=== PATIENT | male | born 1965 | race Caucasian/White ===

== ENCOUNTER 2018-02-28 18:14 | Emergency (ER) | payer BC ==
[2018-02-28] MEDS ORDERED: Morphine VIAL* 10 MG/ML 1 ML VIAL IV ONE (18:31)
[2018-02-28] MEDS ORDERED: Ondansetron INJ* 2 MG/ML VIAL IV ONE (18:31)
[2018-02-28] MEDS ORDERED: Morphine VIAL* 10 MG/ML 1 ML VIAL ONE (18:35)
[2018-02-28] MEDS ORDERED: NS 0.9% 1000 ML*IV.FLUID IV ONE (19:05)
[2018-02-28] MEDS ORDERED: fentaNYL* 50 MCG/ML 2 ML VIAL (100 MCG VIAL) IV SLOW PU ONE ×3 (19:14→19:27)
[2018-02-28] MEDS ORDERED: fentaNYL* 50 MCG/ML 2 ML VIAL (100 MCG VIAL) ONE (19:16)
[2018-02-28] MEDS ORDERED: Midazolam* 1 MG/ML 5 ML VIAL (5 MG) ONE (19:17)
[2018-02-28] MEDS ORDERED: Midazolam* 1 MG/ML 5 ML VIAL (5 MG) SLOW PUSH ONE (19:21)
[2018-02-28] MEDS ORDERED: Midazolam* 1 MG/ML 5 ML VIAL (5 MG) IV ONE (19:29)
--- NOTE | 2018-02-28 20:20 | ED ---
Upper Extremity Pain - HPI Summary HPI Summary: Complains of likely left shoulder dislocation. History of same 1 week ago that was reduced. Patient states he was sleeping today and raised his arm up over his head and felt left shoulder pop out again. Denies any other pain or injury. - History of Current Complaint Chief Complaint: EDShoulderClavicleInj Stated Complaint: LT SHOULDER INJURY Time Seen by Provider: 02/28/18 18:42 Hx Obtained From: Patient Mechanism Of Injury: Other Onset/Duration: Started Hours Ago Timing: Constant Severity Initially: Severe Severity Currently: Severe Pain Location: Shoulder Character: Sharp Aggravating Factor(s): Movement Alleviating Factor(s): Nothing Associated Signs & Symptoms: Positive: Negative - Allergies/Home Medications Allergies/Adverse Reactions: Allergies Allergy/AdvReac Type Severity Reaction Status Date / Time No Known Allergies Allergy Verified 02/28/18 18:41 PMH/Surg Hx/FS Hx/Imm Hx Endocrine/Hematology History: Denies: Hx Anticoagulant Therapy History: Denies: Hx Dialysis Neurological History: Denies: Hx CVA Infectious Disease History: No Infectious Disease History: Reports: Traveled Outside the [place] in Last 30 Days - [place] - Social History Alcohol Use: Daily Alcohol Amount: 2 glasses wine Substance Use Type: Reports: None Hx Tobacco Use: No Smoking Status (MU): Current Some Day Smoker Review of Systems Constitutional: Negative Eyes: Negative ENT: Negative Cardiovascular: Negative Respiratory: Negative Gastrointestinal: Negative Genitourinary: Negative Positive: Arthralgia Skin: Negative Neurological: Negative Psychological: Normal All Other Systems Reviewed And Are Negative: Yes Physical Exam - Summary Physical Exam Summary: Obvious deformity to left shoulder. Patient will not move left upper extremity. PMS intact distally Triage Information Reviewed: Yes Vital Signs On Initial Exam: Initial Vitals Temp Pulse Resp BP Pulse Ox 98 F 77 20 183/133 97 02/28/18 18:18 02/28/18 18:18 02/28/18 18:18 02/28/18 18:18 02/28/18 18:18 Vital Signs Reviewed: Yes Appearance: Positive: Well-Appearing Skin: Positive: Warm Head/Face: Positive: Normal Head/Face Inspection Eyes: Positive: Normal Neck: Positive: Supple Respiratory/Lung Sounds: Positive: Clear to Auscultation Cardiovascular: Positive: Normal Abdomen Description: Positive: Nontender Musculoskeletal: Positive: Normal Neurological: Positive: Normal Psychiatric: Positive: Normal AVPU Assessment: Alert - Comfrey Coma Scale Best Eye Response: 4 - Spontaneous Best Motor Response: 6 - Obeys Commands Best Verbal Response: 5 - Oriented Coma Scale Total: 15 Diagnostics - Vital Signs Vital Signs Temp Pulse Resp BP Pulse Ox 02/28/18 19:30 16 02/28/18 19:22 15 02/28/18 19:14 82 209/131 99 02/28/18 19:12 79 99 02/28/18 18:49 77 100 02/28/18 18:37 16 02/28/18 18:18 98 F 77 20 183/133 97 - Laboratory Lab Statement: Any lab studies that have been ordered have been reviewed, and results considered in the medical decision making process. - Radiology shoulder Xray Interpretation: Positive (See Comments) - anterior dislocation shoulder postreduc Xray Interpretation: No Acute Changes - Successful reduction Radiology Interpretation Completed By: ED Physician - Dr. Stafford orthopedics Course/Dx - Course Course Of Treatment: Complains of likely left shoulder dislocation. History of same 1 week ago that was reduced. Patient states he was sleeping today and raised his arm up over his head and felt left shoulder pop out again. Denies any other pain or injury. Physical exam:Obvious deformity to left shoulder. Patient will not move left upper extremity. PMS intact distally. Anterior Dislocation of left shoulder per X-ray. Reduction of left shoulder performed by Dr Stafford orthopedics on-call, under conscious sedation. Confirmed by x-ray. Follow-up with Dr. Bethea in clinic. Rx for oxycodone. Sling placed. - Diagnoses Provider Diagnoses: Recurrent dislocation, left shoulder Discharge - Sign-Out/Discharge Documenting (check all that apply): Patient Departure - Discharge Plan Condition: Stable Disposition: HOME Prescriptions: Oxycodone HCl 5 mg PO Q6HR 2 Days #6 tablet MDD 4 tabs Patient Education Materials: Shoulder Dislocation Exercises (GEN), Shoulder Dislocation (ED) Referrals: Cyndie Ahumada MD [Primary Care Provider] - Vik Church MD [Medical Doctor] - Jasmyn Bethea MD [Medical Doctor] - Additional Instructions: Follow-up with orthopedics Dr. Stafford and Dr Bethea. Return to the ED for any new or worsening symptoms - Billing Disposition and Condition Condition: STABLE Disposition: Home
--- NOTE | 2018-02-28 21:00 | CONSULT ---
Consult Consult: Orthopedic Surgery Consultation Date: 02/28/2018 Requesting Service:ER Chief Complaint: Left shoulder pain History: 52M with a left shoulder dislocation standing up from couch. Had 2 prior dislocations, 26 years ago, and last week on vacation (reduced by his ). The pain is located at the left shoulder and is constant, severe, sharp. Pain worse with shoulder ROM and lessened when rested. Review of Systems: Negative for fever, recent visual changes, difficulty swallowing, chest pain, shortness of breath, abdominal pain, hematuria, easy bruising, diffuse weakness or lack of coordination, and diffuse rash. Physical Examination: Constitutional: Temp Pulse Resp BP Pulse Ox 98 F 82 16 209/131 99 02/28/18 18:18 02/28/18 19:14 02/28/18 19:30 02/28/18 19:14 02/28/18 19:14 General appearance is healthy and non-septic in no acute distress. Cardiovascular: Pulse examination demonstrates positive radial pulses with brisk capillary refill. There are no varicosities. Abdomen: Soft and nontender Lymphatic: No lymphadenopathy appreciated. Skin: Bilateral upper and lower extremity examination demonstrates no ulcerative lesions. Psychiatric / Neurological: Appropriate affect. Alert and oriented to person, place and time. There is no significant abnormality in coordination appreciated. Normoreflexive deep tendon reflex of the affected extremity. Musculoskeletal: Bilateral lower extremities and contralateral upper extremity show full range of motion with no evidence of instability and no tenderness with palpation and 5 /5 strength. There is no gross deformity. Obvious deformity of left shoulder. TTP at shoulder Pain with any ROM shoulder Has limited elbow extension at baseline but otherwise painless ROM +radial pulse +EPL, OP, 1st SRIKANTH Decreased sensation in the hand. Imaging: X-rays were obtained, and independently interpreted and show an anteroinferior GH joint dislocation Impression and Plan: Recurrent left shoulder GH joint dislocation. I obtained written consent for a closed reduction of the left GH joint. Conscious sedation provided by the ER and I pulled traction/countertraction on the LUE to reduce the GH joint. He tolerated it well and was placed in a sling and swath afterwards. Postreduction xrays showed a reduction of the GH joint. + radial pulse and improved sensation in the hand. He will follow-up with my colleague Dr. Bethea to discuss further care/surgery. He will remain in sling and swath, NWB. Vik Church MD
[2018-02-28 21:20] VITALS: BP 139/84
--- NOTE | 2018-03-01 08:01 | RAD ---
HISTORY: shoulder pain COMPARISONS: None VIEWS: 2 , frontal and outlet views of the left shoulder FINDINGS: BONE DENSITY: Normal. BONES: There is flattening of the articular surface of the humeral head posteriorly suggestive of a Hill-Sachs lesion. JOINTS: There is no arthropathy. ALIGNMENT: There is anterior-inferior dislocation of the humerus with respect to the glenoid fossa. SOFT TISSUES: Unremarkable. OTHER FINDINGS: None. IMPRESSION: LEFT SHOULDER DISLOCATION WITH PROBABLE HILL-SACHS FRACTURE. R1
--- NOTE | 2018-03-01 08:04 | RAD ---
Indication: Post reduction left shoulder dislocation 2 views of left shoulder demonstrates reduction of prior identified anterior dislocation. A fracture of the anterior inferior glenoid cannot be excluded. There is likely a Hill-Sachs deformity. IMPRESSION: Option of previously identified anterior inferior dislocation of the left humerus. R1
--- NOTE | 2018-03-01 19:45 | ED ---
Progress - Progress Note Progress Note: Procedure note, Moderate sedation, After obtaining informed consent from patient's . Following moderate sedation protocol. Patient did receive 100 mg of fentanyl IV push and 5 mg of Versed IV push twice, Moderate sedation accomplished for the procedure. Patient's vital signs remained stable throughout the procedure. No complications. No reversal agents used. Time spent is 15 minutes. Course/Dx - Course Course Of Treatment: Complains of likely left shoulder dislocation. History of same 1 week ago that was reduced. Patient states he was sleeping today and raised his arm up over his head and felt left shoulder pop out again. Denies any other pain or injury. Physical exam:Obvious deformity to left shoulder. Patient will not move left upper extremity. PMS intact distally. Anterior Dislocation of left shoulder per X-ray. Reduction of left shoulder performed by Dr Stafford orthopedics on-call, under conscious sedation. Confirmed by x-ray. Follow-up with Dr. Bethea in clinic. Rx for oxycodone. Sling placed. - Diagnoses Provider Diagnoses: Recurrent dislocation, left shoulder Discharge - Sign-Out/Discharge Documenting (check all that apply): Patient Departure - Discharge Plan Condition: Stable Disposition: HOME Prescriptions: Oxycodone HCl 5 mg PO Q6HR 2 Days #6 tablet MDD 4 tabs Patient Education Materials: Shoulder Dislocation Exercises (GEN), Shoulder Dislocation (ED) Referrals: Vik Church MD [Medical Doctor] - Cyndie Ahumada MD [Primary Care Provider] - Jasmyn Bethea MD [Medical Doctor] - Additional Instructions: Follow-up with orthopedics Dr. Stafford and Dr Bethea. Return to the ED for any new or worsening symptoms - Billing Disposition and Condition Condition: STABLE Disposition: Home - Attestation Statements Scribe Documentation Reviewed: Yes
== END 2018-02-28 21:00 | disposition home or self-care (01) ==
LOC: ED 18:14
DX: M24.412 Recurrent dislocation, left shoulder (principal); F17.200 Nicotine dependence, unspecified, uncomplicated
CPT/HCPCS: 23650; 96374; 96375; 96376; 99285; J2250; J2270; J2405; J3010

== ENCOUNTER 2019-08-07 15:10 | Emergency (ER) | payer BC, MEDICARE ==
[2019-08-07] MEDS ORDERED: Tetan/Diph/Pertus SYR(Tdap)* 0.5 ML SYR(BOOSTRIX) use SYR contains LATEX IM ONE (15:32)
[2019-08-07] MEDS ORDERED: ceFAZolin 500 MG VIAL(*) 500 MG VIAL IM ONE (16:04)
--- NOTE | 2019-08-07 16:31 | ED ---
Upper Extremity Pain - HPI Summary HPI Summary: This patient is a 54-year-old male who presents to the ED with right index finger injury. Patient states a nail punctured the joint capsule of the right index MCP joint. He states the area was quite swollen and red overnight and this morning. He also endorses some clear fluid drainage from the area. Tetanus is not up-to-date. He denies any fevers. He has more mobility at this time to the fingers into the hand, however states this morning he had limited range of motion due to swelling. Hx of MRSA. - History of Current Complaint Chief Complaint: EDExtremityUpper Stated Complaint: RT HAND LAC PER PT Time Seen by Provider: 08/07/19 15:34 Hx Obtained From: Patient Timing: Constant Severity Initially: Moderate Severity Currently: Moderate Pain Location: Finger - MCP Aggravating Factor(s): Movement, Lifting, Flexion, Extension Alleviating Factor(s): Rest Associated Signs & Symptoms: Negative: Swelling, Redness, Bruising Related History: Dominant Hand Right - Allergies/Home Medications Allergies/Adverse Reactions: Allergies Allergy/AdvReac Type Severity Reaction Status Date / Time No Known Allergies Allergy Verified 01/10/19 10:50 PMH/Surg Hx/FS Hx/Imm Hx Previously Healthy: Yes Endocrine/Hematology History: Denies: Hx Anticoagulant Therapy, Hx Diabetes Cardiovascular History: Denies: Hx Hypertension, Hx Pacemaker/ICD Respiratory History: Denies: Hx Asthma History: Denies: Hx Dialysis, Hx Renal Disease Musculoskeletal History: Reports: Other Musculoskeletal History - LEFT ELBOW DOES NOT STRAIGHTEN COMPLETELY Sensory History: Denies: Hx Contacts or Glasses, Hx Hearing Aid Opthamlomology History: Denies: Hx Contacts or Glasses Neurological History: Reports: Hx Migraine - SEVERE AT TIMES STATES TREATS WITH OTC MEDICATION PER PATIENT Denies: Hx CVA Psychiatric History: Reports: Hx Anxiety - ON MEDICATION FOR, Hx Depression - ON MEDICATION FOR Denies: Hx Panic Disorder - Surgical History Surgery Procedure, Year, and Place: CSP FUSION,. LUMBAR SURGERY,. LEFT ELBOW ARTHROSCOPY TO REMOVE BONE CHIP. LEFT SHOULDER Hx Anesthesia Reactions: No - Immunization History Hx Pertussis Vaccination: No Immunizations Up to Date: Yes Infectious Disease History: Yes Infectious Disease History: Denies: Traveled Outside the US in Last 30 Days - Social History Occupation: Employed Full-time Lives: With Family Alcohol Use: Daily Alcohol Amount: 2 glasses wine Hx Substance Use: No Substance Use Type: Reports: None Hx Tobacco Use: No Smoking Status (MU): Current Some Day Smoker Amount Used/How Often: PIPE X 10 YEARS Have You Smoked in the Last Year: Yes Review of Systems Negative: Fever, Chills, Fatigue, Skin Diaphoresis Negative: Chest Pain Negative: Shortness Of Breath, Cough Negative: Arthralgia, Myalgia, Edema Negative: Rash, Bruising Neurological/Mental Status: Negative All Other Systems Reviewed And Are Negative: Yes Physical Exam Triage Information Reviewed: Yes Vital Signs On Initial Exam: Initial Vitals Temp Pulse Resp BP Pulse Ox 97.5 F 78 18 140/99 98 08/07/19 15:16 08/07/19 15:16 08/07/19 15:16 08/07/19 15:16 08/07/19 15:16 Vital Signs Reviewed: Yes Appearance: Positive: Well-Appearing, Well-Nourished Skin: Positive: Warm, Skin Color Reflects Adequate Perfusion Head/Face: Positive: Normal Head/Face Inspection Eyes: Positive: EOMI, JOIE, Conjunctiva Clear Neck: Positive: Supple Respiratory/Lung Sounds: Positive: Breath Sounds Present Cardiovascular: Positive: Pulses are Symmetrical in both Upper and Lower Extremities Musculoskeletal: Positive: Other - full ROM Neurological: Positive: Speech Normal Procedures - Sedation Patient Received Moderate/Deep Sedation with Procedure: No Diagnostics - Vital Signs Vital Signs Temp Pulse Resp BP Pulse Ox 08/07/19 15:16 97.5 F 78 18 140/99 98 - Laboratory Lab Statement: Any lab studies that have been ordered have been reviewed, and results considered in the medical decision making process. Course/Dx - Course Course Of Treatment: This patient is evaluated for puncture wound to the right hand which is small and just distal to the MCP joint of the right index finger. There is no swelling and erythema at this time. Patient has good mobility and range of motion throughout. X-ray obtained which shows some soft tissue swelling without evidence of fracture. He is given IM Ancef in the ED and prescribed 500 mg Keflex 4x daily x 7 days. Encouraged close follow-up and return to the ED for any swelling, fevers, decreased mobility or redness to the area. Tetanus updated. - Diagnoses Differential Diagnosis/HQI/PQRI: Positive: Fracture (Closed), Other - joint space wound, MRSA, cellulitis, abscess, infection Provider Diagnoses: Puncture wound Discharge ED - Sign-Out/Discharge Documenting (check all that apply): Patient Departure - Discharge Plan Condition: Stable Disposition: HOME Prescriptions: Cephalexin CAP* [Keflex CAP*] 500 mg PO QID #28 cap Referrals: Cyndie Ahumada MD [Primary Care Provider] - Additional Instructions: Keflex four times daily x 7 days If you develop any worsening symptoms - return to the ED - Billing Disposition and Condition Condition: STABLE Disposition: Home - Attestation Statements Provider Attestation: I was available for consult. This patient was seen by the RAJI. The patient was not presented to, seen by, or examined by me. Titi North MD
[2019-08-07 17:02] VITALS: BP 155/111
== END 2019-08-07 17:01 | disposition home or self-care (01) ==
LOC: ED 15:10
DX: S61.230A Puncture wound without foreign body of right index finger without damage to nail, initial encounter (principal); Z23 Encounter for immunization; W45.0XXA Nail entering through skin, initial encounter; Y92.9 Unspecified place or not applicable; F41.9 Anxiety disorder, unspecified; F32.9 Major depressive disorder, single episode, unspecified; F17.290 Nicotine dependence, other tobacco product, uncomplicated; Z79.899 Other long term (current) drug therapy
CPT/HCPCS: 90471; 90715; 99282; J0690

== ENCOUNTER 2019-10-14 19:51 | Emergency (ER) | payer MEDICARE ==
--- OUTSIDE RECORDS SUMMARY | 2019-10-14 20:04 | XMS REPORT | Continuity of Care Document ---
:1965 External Reference #:[id number] Author Name Guanaco Goodrich M.D. (transmitted by agent of provider Angelina Young) Address [address] [place] [address] Care Team Providers Name Role Phone Cyndie Ahumada MD - Family Care Team Information Pipelines Manager [phone] Medicine Problems Active Problems Provider Date Injury of shoulder region Jasmyn Bethea MD Onset: 06/12/2018 Recurrent dislocation of shoulder region Jasmyn Bethea MD Onset: 03/01/2018 Social History Type Date Description Comments Sex Unknown ETOH Use consumes 1-2 glasses of wine per day Tobacco Use Start: Unknown End: Patient is a former smoker Unknown Smoking Status Reviewed: 09/12/19 Patient is a former smoker Exercise Type/Frequency Negative For Exercises regularly Allergies, Adverse Reactions, Alerts Description No Known Drug Allergies Medications Active Medications SIG Qnty Indications Ordering Provider Date Escitalopram Oxalate 1 by mouth every Unknown 20mg day Tablets Duloxetine HCL 1 by mouth every Unknown 60mg Caps day DR Part Gabapentin take one capsule Unknown 400mg Capsules by mouth 3 times a day Diclofenac Potassium 1 tab by mouth Unknown 50mg twice a day as Tablets needed Diltiazem HCL ER Beads Take 1 Capsule By Unknown Mouth Every Day 120mg Caps ER 24HR Fenofibrate Take 1 Tablet By Unknown 160mg Tablets Mouth Every Day Immunizations Description No Information Available Vital Signs Date Vital Result Comment 09/12/2019 10:08am Height 72 inches 6'0" Weight 220.00 lb Heart Rate 74 /min BP Systolic 128 mmHg BP Diastolic 86 mmHg Body Temperature 97.5 F Pain Level 5 BMI (Body Mass Index) 29.8 kg/m2 10/30/2018 11:16am Height 72 inches 6'0" Weight 213.00 lb Heart Rate 77 /min BP Systolic 128 mmHg BP Diastolic 72 mmHg Respiratory Rate 16 /min Body Temperature 97.2 F Pain Level 3 BMI (Body Mass Index) 28.9 kg/m2 Results Description No Information Available Procedures Description No Information Available Medical Devices Description No Information Available Encounters Type Date Location Provider Dx Diagnosis Office Visit 09/12/2019 [facility] Guanaco Goodrich, M25.372 Other 10:00a at [facility] instability, left ankle M65.872 Other synovitis and tenosynovitis, left ankle and foot Assessments Date Code Description Provider 09/12/2019 M25.372 Other instability, left ankle Guanaco Goodrich M.D. 09/12/2019 M65.872 Other synovitis and tenosynovitis, left ankle Guanaco Goodrich M.D. and foot Plan of Treatment Future Appointment(s):10/10/2019 10:45 am - Guanaco Goodrich M.D. at [facility] at [id number]/12/2019 - Guanaco Goodrich M.D.M25.372 Other instability , left ankleNew Therapy:Physical TherapyFollow up:Follow up: 4 [id number] Other synovitis and tenosynovitis, left ankle and foot Functional Status Description No Information Available Mental Status Description No Information Available Referrals Description No Information Available
--- OUTSIDE RECORDS SUMMARY | 2019-10-14 20:04 | XMS REPORT | Continuity of Care Document ---
:1965 External Reference #:[id number] Author Name Guanaco Goodrich M.D. (transmitted by agent of provider Victoriano Sampson) Address [address] [place] [address] Care Team Providers Name Role Phone Cyndie Ahumada MD - Family Care Team Information Steam And Power Supervisor [phone] Medicine Problems Active Problems Provider Date Injury of shoulder region Jasmyn Bethea MD Onset: 06/12/2018 Recurrent dislocation of shoulder region Jasmny Bethea MD Onset: 03/01/2018 Social History Type [...] Location Provider Dx Diagnosis Office Visit 09/12/2019 [facility] Guanaco Goodrich, M25.372 Other 10:00a at [facility] instability, left ankle M65.872 Other synovitis and tenosynovitis, left ankle and foot Assessments Date Code Description Provider 09/12/2019 M25.372 Other instability, left ankle Guanaco Goodrich M.D. 09/12/2019 M65.872 Other synovitis and tenosynovitis, left ankle Guanaco Goodrich M.D. and foot Plan of Treatment 09/12/2019 - Guanaco Goodrich M.D.M25.372 Other instability, left ankleNew Therapy:Physical TherapyFollow up:Follow up: 4 [id number] Other synovitis and tenosynovitis, left ankle and foot Functional Status Description No Information Available Mental Status Description No Information Available Referrals Description No Information Available
[2019-10-14] MEDS ORDERED: NS 0.9% 1000 ML** 1,000 ML IV ONE (20:21)
[2019-10-14] MEDS ORDERED: Labetalol IV* 5 MG/ML 20 ML VIAL IV PUSH ONE ×2 (20:29→21:22)
[2019-10-14] MEDS ORDERED: diPHENhydraMINE IV* 50 MG/ML 1 ml VIAL (BENADRYL) IV ONE (20:29)
[2019-10-14] MEDS ORDERED: PROCHLORPERAZINE INJ 5 MG/ML 2 ML VIAL IV ONE (20:29)
--- NOTE | 2019-10-14 20:30 | ED ---
Headache - HPI Summary HPI Summary: 54-year-old male presents headache today. He states his headache is on left side of his head. He states that he has been under some stress lately and has been grinding his teeth which lead to a headache. He states that it is a tension-type headache. He states that this feels like his normal headaches but he tried his normal medication and it did not work. States the headache is currently 8 out of 10. He admits to nausea and vomiting. He admits to light sensitivity and noise sensitivity. No fevers. No sinus congestion. No chest pain shortness breath. His blood pressure is also high. - History Of Current Complaint Chief Complaint: EDHeadache Stated Complaint: HEADACHE PER PT Time Seen by Provider: 10/14/19 20:22 - Allergies/Home Medications Allergies/Adverse Reactions: Allergies Allergy/AdvReac Type Severity Reaction Status Date / Time No Known Allergies Allergy Verified 10/14/19 19:55 Home Medications: Home Medications DULoxetine DR CAP* [Cymbalta CAP*] 60 mg PO QAM 12/08/17 [History Confirmed ] Acetaminophen [Acetaminophen Extra Strength] 2 tab PO ONCE PRN 05/21/18 [ History Confirmed 10/14/19] Ibuprofen TAB* [Advil TAB*] 400 - 600 mg PO ONCE PRN 05/21/18 [History Confirmed 10/14/19] Escitalopram * [Lexapro *] 20 mg PO DAILY 10/14/19 [History Confirmed 10/14/19] PMH/Surg Hx/FS Hx/Imm Hx Endocrine/Hematology History: Denies: Hx Anticoagulant Therapy, Hx Diabetes Cardiovascular History: Denies: Hx Hypertension, Hx Pacemaker/ICD Respiratory History: Denies: Hx Asthma History: Denies: Hx Dialysis, Hx Renal Disease Musculoskeletal History: Reports: Other Musculoskeletal History - LEFT ELBOW DOES NOT STRAIGHTEN COMPLETELY Sensory History: Denies: Hx Contacts or Glasses, Hx Hearing Aid Opthamlomology History: Denies: Hx Contacts or Glasses Neurological History: Reports: Hx Migraine - SEVERE AT TIMES STATES TREATS WITH OTC MEDICATION PER PATIENT Denies: Hx CVA Psychiatric History: Reports: Hx Anxiety - ON MEDICATION FOR, Hx Depression - ON MEDICATION FOR Denies: Hx Panic Disorder - Surgical History Surgery Procedure, Year, and Place: CSP FUSION,. LUMBAR SURGERY,. LEFT ELBOW ARTHROSCOPY TO REMOVE BONE CHIP. LEFT SHOULDER Hx Anesthesia Reactions: No Infectious Disease History: No Infectious Disease History: Denies: Traveled Outside the [place] in Last 30 Days - Family History Known Family History: Positive: Non-Contributory - Social History Alcohol Use: Daily Alcohol Amount: 2 glasses wine Hx Substance Use: No Substance Use Type: Reports: None Hx Tobacco Use: No Smoking Status (MU): Current Some Day Smoker Amount Used/How Often: PIPE X 10 YEARS Have You Smoked in the Last Year: Yes Review of Systems Negative: Fever Negative: Chest Pain Negative: Shortness Of Breath Positive: Vomiting, Nausea Positive: Headache All Other Systems Reviewed And Are Negative: Yes Physical Exam Triage Information Reviewed: Yes Vital Signs On Initial Exam: Initial Vitals Temp Pulse Resp BP Pulse Ox 97.3 F 63 15 183/117 99 10/14/19 19:52 10/14/19 19:52 10/14/19 19:52 10/14/19 19:52 10/14/19 19:52 Vital Signs Reviewed: Yes Appearance: Positive: Well-Appearing Skin: Positive: Warm, Dry Head/Face: Positive: Normal Head/Face Inspection Eyes: Positive: Normal, EOMI, JOIE, Conjunctiva Clear ENT: Positive: Normal ENT inspection, Pharynx normal, TMs normal Respiratory/Lung Sounds: Positive: Clear to Auscultation, Breath Sounds Present Cardiovascular: Positive: Normal, RRR Musculoskeletal: Positive: Normal Neurological: Positive: Sensory/Motor Intact, Alert, Oriented to Person Place, Time, CN Intact II-III Psychiatric: Positive: Normal Procedures - Sedation Patient Received Moderate/Deep Sedation with Procedure: No Diagnostics - Vital Signs Vital Signs Temp Pulse Resp BP Pulse Ox 10/14/19 19:52 97.3 F 63 15 183/117 99 - Laboratory Result Diagrams: 10/14/19 20:28 10/14/19 20:28 Lab Statement: Any lab studies that have been ordered have been reviewed, and results considered in the medical decision making process. - CT brain CT Interpretation Completed By: Radiologist Summary of CT Findings: IMPRESSION: Negative noncontrast head CT. Re-Evaluation - Re-Evaluation First Eval Re-Evaluation Time: 21:33 Comment: headache still present Second Eval Re-Evaluation Time: 22:40 Comment: nausea resolved, headache still present Third Eval Re-Evaluation Time: 00:17 Change: Improved Comment: headache improved, feels tired and ready to go home, bp is 126/68 Headache Course/Dx - Course Course Of Treatment: 54-year-old male presents headache today. He states his headache is on left side of his head. He states that he has been under some stress lately and has been grinding his teeth which lead to a headache. He states that it is a tension-type headache. He states that this feels like his normal headaches but he tried his normal medication and it did not work. States the headache is currently 8 out of 10. He admits to nausea and vomiting. He admits to light sensitivity and noise sensitivity. No fevers. No sinus congestion. No chest pain shortness breath. His blood pressure is also high. On exam has a normal neuro exam. wbc 11.3. CT brain normal. gave benadryl and compazine with no improvement. will try ativan, magnesium and labatelol with improvement in nausea but still headache. gave morphine and decadron with improvement. patient feel a sleep and bp is normal. will discharge and told to monitor blood pressure. patient understand and agrees with plan. - Diagnoses Differential Diagnosis/HQI/PQRI: Migraine, Subarachnoid Hemorrhage, Tension Headache Provider Diagnoses: Headache, Elevated blood pressure reading - Critical Care Time Critical Care Statement: Critical care time is provided exclusive of any time spent performing procedures. Discharge ED - Sign-Out/Discharge Documenting (check all that apply): Patient Departure - Discharge Plan Condition: Good Disposition: HOME Patient Education Materials: Acute Headache (ED) Referrals: Cyndie Ahumada MD [Primary Care Provider] - Additional Instructions: follow up with primary within 5 days Keep a blood pressure log at home and follow up with primary Return to ED if develop any new or worsening symptoms - Billing Disposition and Condition Condition: GOOD Disposition: Home
[2019-10-14 20:54] LABS: ABS Lymphocytes 1.2 10^3/ul (1.0-4.8); ABS Monocytes 0.6 10^3/ul (0-0.8); ABS Neutrophils 9.5 10^3/ul (1.5-7.7); Eosinophil % 0.1 %; Hematocrit 44 % (42-52); Hemoglobin 15.2 g/dL (14.0-18.0); Lymphocyte % 10.5 %; Mean Corpuscular HGB Conc 34 g/dL (31-36); Mean Corpuscular Hemoglobin 31 pg (27-31); Mean Corpuscular Volume 90 fL (80-94); Mean Platelet Volume 7.8 fL (7.4-10.4); Platelet Count 293 10^3/uL (150-450); Red Blood Count 4.95 10^6 /uL (4.18-5.48); Red Cell Distribution Width 14 % (10-15); White Blood Count 11.3 10^3/uL (3.5-10.8)
[2019-10-14 21:11] LABS: Albumin 4.7 g/dL (3.2-5.2); Albumin/Globulin Ratio 1.7 (1-3); BUN/Creatinine Ratio 12.3 (8-20); C Reactive Protein 1.2 mg/L (<8.01); EGFR African American 88.1 (>60); EGFR Non-African American 72.8 (>60); Globulin 2.7 g/dL (2-4); Magnesium 1.8 mg/dL (1.9-2.7); Potassium 3.6 mmol/L (3.5-5.0); Total Bilirubin 0.5 mg/dL (0.2-1.0); Total Protein 7.4 g/dL (6.4-8.9)
[2019-10-14] MEDS ORDERED: Magnesium Sulfate 2 GM IV* 2 GM/50 ML BAG IVPB ONE (21:22)
[2019-10-14] MEDS ORDERED: Lorazepam PYXIS KEY PRN (21:25)
[2019-10-14] MEDS ORDERED: LORazepam INJ* 2 MG/ML 1 ML VIAL IV PUSH ONE (21:25)
[2019-10-14] MEDS ORDERED: Lorazepam PYXIS KEY ONE (21:27)
[2019-10-14] MEDS ORDERED: LORazepam INJ* 2 MG/ML 1 ML VIAL ONE (21:27)
[2019-10-14] MEDS ORDERED: Morphine 4 MG/ML VIAL (1 ml) 4 MG/ML VIAL IV ONE (22:35)
[2019-10-14] MEDS ORDERED: Dexamethasone IV* 4 MG/ML 1 ML (4 MG) IV SLOW PU ONE (22:38)
[2019-10-14] MEDS ORDERED: Morphine INJ* 2 MG/ML 1 ML SYRINGE (TWO MG - NEW SYRINGE VERSION) IV ONE (23:17)
[2019-10-15 00:19] VITALS: BP 125/68
== END 2019-10-15 00:30 | disposition home or self-care (01) ==
LOC: ED 19:51
DX: R51 Headache (principal); R03.0 Elevated blood-pressure reading, without diagnosis of hypertension; Z72.0 Tobacco use; F41.9 Anxiety disorder, unspecified; F32.9 Major depressive disorder, single episode, unspecified; R11.2 Nausea with vomiting, unspecified
CPT/HCPCS: 36415; 70450; 80053; 83735; 85025; 86140; 96361; 96365; 96375; 99284; J0780; J1100; J1200; J2060; J2270; J3475